=== PATIENT | male | born 1950 | race Caucasian/White ===

== ENCOUNTER → 2016-09-19 | Outpatient (CLI) | payer MEDICARE ==
[~2016-09-19] MED LIST: AMLO5TAB22 PO; ASPI325T PO; ATEN-104 PO; ATEN1TAB75 PO; BENI40TA30 PO; CLIN1CAP5 PO; DIPH50TA PO; HYDR-3111 PO; HYDR12.56 PO; NIAC500 PO; PENI500T PO; POTA99TA12 PO; ROSU40 PO
== END ==
LOC: PLAB 08:02
DX: Z85.46 Personal history of malignant neoplasm of prostate (principal)
CPT/HCPCS: 36415; 84153; 84403

== ENCOUNTER → 2016-11-26 | Outpatient (CLI) | payer MEDICARE ==
[2016-11-26 12:20] LABS: AUTOMATED NEUTROPHIL # 5.3 TH/MM3 (1.8-7.7); BASOPHIL % 0.7 % (0.0-2.0); EOSINOPHIL # 0.2 TH/MM3 (0-0.4); EOSINOPHIL % 3.6 % (0.0-4.0); HEMATOCRIT 43.5 % (39.0-51.0); HEMO FLAGS DIFF FINAL; LYMPH % 10.6 % (9.0-44.0); LYMPHOCYTE # 0.7 TH/MM3 (1.0-4.8); MEAN CELL VOLUME 95.4 FL (80.0-100.0); MEAN CORPUSCULAR HEMOGLOBIN 33.6 PG (27.0-34.0); MEAN CORPUSCULAR HGB CONC 35.2 % (32.0-36.0); MONO % 9.6 % (0.0-8.0); NEUT % 75.5 % (16.0-70.0); PLATELET COUNT 226 TH/MM3 (150-450); RED BLOOD COUNT 4.56 MIL/MM3 (4.50-5.90); RED CELL DISTRIBUTION WIDTH 13.1 % (11.6-17.2)
== END ==
LOC: PLAB 10:29
PROVIDERS: ATTEND Family Medicine
DX: M79.672 Pain in left foot (principal)
CPT/HCPCS: 36415; 84550; 85025

== ENCOUNTER → 2017-01-23 | Outpatient (CLI) | payer MEDICARE ==
[2017-01-23 10:27] LABS: ALKALINE PHOSPHATASE 56 U/L (45-117); ALT (GPT) 41 U/L (12-78); ANION GAP 6 MEQ/L (5-15); AST (GOT) 29 U/L (15-37); BICARBONATE 29.5 MEQ/L (21.0-32.0); BLOOD UREA NITROGEN 10 MG/DL (7-18); CHLORIDE 104 MEQ/L (98-107); GLOMERULAR FILTRATION RATE 77 ML/MIN (>89); GLUCOSE,FASTING 102 MG/DL (74-99); HDL CHOLESTEROL 60.4 MG/DL (40.0-60.0); LDL CHOLESTEROL 101 MG/DL (0-99); POTASSIUM 3.8 MEQ/L (3.5-5.1); SODIUM (NA) 139 MEQ/L (136-145); TOTAL BILIRUBIN ADULT 0.5 MG/DL (0.2-1.0); URIC ACID 3.4 MG/DL (2.6-7.2)
== END ==
LOC: PLAB 07:27
PROVIDERS: ATTEND Family Medicine
DX: I10 Essential (primary) hypertension (principal); E78.2 Mixed hyperlipidemia; G62.9 Polyneuropathy, unspecified; M10.072 Idiopathic gout, left ankle and foot
CPT/HCPCS: 36415; 80053; 80061; 84443; 84550

== ENCOUNTER → 2017-03-18 | Outpatient (CLI) | payer MEDICARE | LOC: PLAB 08:37 | DX: Z85.46 Personal history of malignant neoplasm of prostate (principal) | CPT/HCPCS: 36415; 84153; 84154 ==

== ENCOUNTER → 2017-08-03 | Outpatient (CLI) | payer MEDICARE ==
[2017-08-03 11:06] LABS: ANION GAP 12 MEQ/L (5-15); AST (GOT) 44 U/L (15-37); BLOOD UREA NITROGEN 13 MG/DL (7-18); CHLORIDE 100 MEQ/L (98-107); GLOMERULAR FILTRATION RATE 73 ML/MIN (>89); GLUCOSE,FASTING 112 MG/DL (74-99); POTASSIUM 3.6 MEQ/L (3.5-5.1); SODIUM (NA) 138 MEQ/L (136-145)
[2017-08-03 11:08] LABS: ALT (GPT) 64 U/L (12-78); URIC ACID 3.6 MG/DL (2.6-7.2)
[2017-08-03 11:17] LABS: ALKALINE PHOSPHATASE 66 U/L (45-117); HDL CHOLESTEROL 47.1 MG/DL (40.0-60.0); LDL CHOLESTEROL 66 MG/DL (0-99); TOTAL BILIRUBIN ADULT 0.6 MG/DL (0.2-1.0)
== END ==
LOC: PLAB 07:41
PROVIDERS: ATTEND Family Medicine
DX: M10.072 Idiopathic gout, left ankle and foot (principal); I10 Essential (primary) hypertension; E78.2 Mixed hyperlipidemia; G62.9 Polyneuropathy, unspecified
CPT/HCPCS: 36415; 80053; 80061; 84443; 84550

== ENCOUNTER → 2017-10-06 | Outpatient (CLI) | payer MEDICARE ==
[2017-10-06 10:44] LABS: FREE T4 0.91 NG/DL (0.76-1.46)
== END ==
LOC: PLAB 07:43
PROVIDERS: ATTEND Family Medicine
DX: R94.6 Abnormal results of thyroid function studies (principal)
CPT/HCPCS: 36415; 84439; 84443

== ENCOUNTER → 2018-01-22 | Outpatient (CLI) | payer MEDICARE ==
[2018-01-22 10:37] LABS: AUTOMATED NEUTROPHIL # 3.2 TH/MM3 (1.8-7.7); EOSINOPHIL # 0.2 TH/MM3 (0-0.4); EOSINOPHIL % 3.2 % (0.0-4.0); HEMOGLOBIN 15.4 GM/DL (13.0-17.0); LYMPH % 19.6 % (9.0-44.0); MEAN CELL VOLUME 95.2 FL (80.0-100.0); MEAN CORPUSCULAR HEMOGLOBIN 32.6 PG (27.0-34.0); MEAN CORPUSCULAR HGB CONC 34.3 % (32.0-36.0); MEAN PLATELET VOLUME 7.4 FL (7.0-11.0); MONO % 11.1 % (0.0-8.0); MONOCYTE # 0.6 TH/MM3 (0-0.9); NEUT % 65.1 % (16.0-70.0); PLATELET COUNT 224 TH/MM3 (150-450); RED BLOOD COUNT 4.73 MIL/MM3 (4.50-5.90)
[2018-01-22 11:08] LABS: ALBUMIN 4.1 GM/DL (3.4-5.0); AST (GOT) 31 U/L (15-37); BICARBONATE 28.5 MEQ/L (21.0-32.0); BLOOD UREA NITROGEN 13 MG/DL (7-18); CALCIUM 9.4 MG/DL (8.5-10.1); CHLORIDE 103 MEQ/L (98-107); CREATININE 1.02 MG/DL (0.60-1.30); GLOMERULAR FILTRATION RATE 73 ML/MIN (>89); GLUCOSE,FASTING 111 MG/DL (74-99); SODIUM (NA) 139 MEQ/L (136-145)
[2018-01-22 11:09] LABS: ALT (GPT) 45 U/L (12-78); CHOLESTEROL 178 MG/DL (120-200); TRIGLYCERIDES 241 MG/DL (42-150)
[2018-01-22 11:18] LABS: ALKALINE PHOSPHATASE 62 U/L (45-117); HDL CHOLESTEROL 57.3 MG/DL (40.0-60.0); LDL CHOLESTEROL 73 MG/DL (0-99); THYROXINE (T4) 6.3 MCG/DL (4.5-12.1); TOTAL BILIRUBIN ADULT 0.9 MG/DL (0.2-1.0); TOTAL PROTEIN 7.7 GM/DL (6.4-8.2)
== END ==
LOC: PLAB 08:08
PROVIDERS: ATTEND Family Medicine
DX: E78.2 Mixed hyperlipidemia (principal); M10.00 Idiopathic gout, unspecified site; I10 Essential (primary) hypertension
CPT/HCPCS: 36415; 80053; 80061; 84436; 84443; 84550; 85025